=== PATIENT | female | born 1945 | race Hispanic/Latino ===

== ENCOUNTER 2017-12-12 08:37 | Emergency (ER) | payer MEDICARE ==
[2017-12-12] MEDS ORDERED: METHYLPREDNISOLONE SOD SUCC 40MG/ML 1ML ONE (09:11)
[2017-12-12] MEDS ORDERED: LEVOFLOXACIN 500 MG TABLET ONE (09:11)
[2017-12-12] MEDS ORDERED: IPRATROPIUM/ALBUTEROL SULFATE 3 ML SOLUTION IH ONE (09:11)
[2017-12-12 09:17] LABS: BASOPHILS % (AUTO) 1.2 % (0.0-5.0); HEMATOCRIT 38.3 % (36-48); MEAN CORPUSCULAR HEMOGLOBIN 31.4 pg (27.0-33.0); MEAN CORPUSCULAR HGB CONC 34.9 g/dL (32.0-36.0); MONOCYTES % (AUTO) 6.7 % (3.0-13.0); NEUTROPHILS % (AUTO) 69.1 % (40.0-77.0); PLATELET COUNT (AUTO) 168 K/uL (130-400); RED BLOOD CELL COUNT(AUTO) 4.26 MIL/uL (4.00-5.50); RED CELL DISTRIBUTION WIDTH 13.9 % (11.0-15.5); WHITE BLOOD COUNT (AUTO) 5.6 K/uL (4.8-10.8)
[2017-12-12] MEDS ORDERED: SODIUM CHLORIDE 0.9% 1000ML 1,000 ML IV ONE (09:21)
[2017-12-12 09:22] LABS: APPEARANCE,URINE Clear (CLEAR); BILIRUBIN,URINE Negative (NEGATIVE); COLOR,URINE Yellow (YELLOW); GLUCOSE, URINE (UA) Negative (NEGATIVE); KETONES,URINE Negative (NEGATIVE); LEUKOCYTE ESTERASE ,URINE Small (NEGATIVE); NITRATE,URINE Negative (NEGATIVE); OCCULT BLOOD,URINE Negative (NEGATIVE); PH,URINE 5.5 (5.0-8.0); PROTEIN,URINE Negative (NEGATIVE); UROBILINOGEN,URINE 0.2 mg/dL (0.2-1.0)
[2017-12-12 09:23] LABS: CREATININE 0.9 mg/dL (0.5-1.5)
[2017-12-12 09:35] LABS: BACTERIA,URINE Rare /HPF (None Seen); RBC,URINE 0-1 /HPF (0-1); SQUAMOUS EPITHELIAL CELL,UR Rare /LPF (0-2)
== END 2017-12-12 10:31 | disposition home or self-care (01) ==
LOC: EDH 08:37
DX: J44.1 Chronic obstructive pulmonary disease with (acute) exacerbation (principal); I10 Essential (primary) hypertension; J84.10 Pulmonary fibrosis, unspecified; R50.9 Fever, unspecified; M25.50 Pain in unspecified joint
CPT/HCPCS: 36415; 71045; 80048; 81001; 83605; 85025; 85378; 87088; 87804 ×2; 93005; 94640; 96361; 96374; 99285; J2920; J7030

== ENCOUNTER 2018-07-19 11:17 | Emergency (ER) | payer MEDICARE ==
[2018-07-19] MEDS ORDERED: IPRATROPIUM/ALBUTEROL SULFATE 3 ML SOLUTION IH ONE (11:38)
[2018-07-19 11:41] LABS: BASOPHILS % (AUTO) 0.7 % (0.0-5.0); EOSINOPHILS % (AUTO) 4.4 % (0.0-8.0); HEMATOCRIT 36.9 % (36-48); LYMPHOCYTES % (AUTO) 13.5 % (21.0-51.0); MEAN CORPUSCULAR HEMOGLOBIN 30.8 pg (27.0-33.0); MEAN CORPUSCULAR VOLUME 90.5 fL (79-99); MONOCYTES % (AUTO) 4.4 % (3.0-13.0); NUCLEATED RED BLOOD CELLS 0.1 % (0.0-0.19); PLATELET COUNT (AUTO) 187 K/uL (130-400); RED BLOOD CELL COUNT(AUTO) 4.07 MIL/uL (4.00-5.50); WHITE BLOOD COUNT (AUTO) 5.7 K/uL (4.8-10.8)
[2018-07-19 11:48] LABS: POTASSIUM 4.3 mmol/L (3.5-5.1)
[2018-07-19 11:53] LABS: ALBUMIN 3.8 g/dL (3.5-5.0); BILIRUBIN,TOTAL 0.5 mg/dL (0.2-1.0); TOTAL PROTEIN, SERUM 7.2 g/dL (6.0-8.3)
[2018-07-19 11:58] LABS: INR 1.01 (0.85-1.15); PROTHROMBIN TIME 10.6 SEC (9.6-11.6)
[2018-07-19] MEDS ORDERED: ACETAMINOPHEN 325 MG TAB ONE (12:56)
== END 2018-07-19 15:13 | disposition home or self-care (01) ==
LOC: EDH 11:17
DX: R06.00 Dyspnea, unspecified (principal); R07.2 Precordial pain; R06.02 Shortness of breath; I10 Essential (primary) hypertension
CPT/HCPCS: 36415; 71045; 80053; 82550; 83880; 84484; 85025; 85610; 85730; 93005; 94640

== ENCOUNTER → 2019-01-30 | Outpatient (CLI) | payer MEDICARE | END | disposition home or self-care (01) | LOC: SHCH 10:35 | PROVIDERS: ATTEND Internal Medicine Cardiovascular Disease | DX: I10 Essential (primary) hypertension (principal) | CPT/HCPCS: 93306 ==

== ENCOUNTER → 2019-01-31 | Outpatient (CLI) | payer MEDICARE ==
[~2019-01-31] VITALS: Ht 152.4 cm; Wt 71.2 kg
[~2019-01-31] MED LIST: REGADENOSON 0.4 MG/5 ML PF SYG IVP SCH
== END | disposition home or self-care (01) ==
LOC: SHCH 08:03
PROVIDERS: ATTEND Internal Medicine Cardiovascular Disease
DX: I25.119 Atherosclerotic heart disease of native coronary artery with unspecified angina pectoris (principal)
CPT/HCPCS: 78452; 93017; 96374; A9500 ×2; J2785

== ENCOUNTER → 2023-03-27 | Outpatient (CLI) | payer MEDICARE ==
[~2023-03-27] MED LIST changes: +REGADENOSON 0.4 MG/5 ML PF SYG IVP ONE; -REGADENOSON 0.4 MG/5 ML PF SYG IVP SCH
== END | disposition home or self-care (01) ==
LOC: SHCH 08:33
PROVIDERS: ATTEND Internal Medicine Cardiovascular Disease
DX: R94.39 Abnormal result of other cardiovascular function study (principal); I20.0 Unstable angina; R00.0 Tachycardia, unspecified; R06.00 Dyspnea, unspecified; R00.2 Palpitations; R42 Dizziness and giddiness; I10 Essential (primary) hypertension
CPT/HCPCS: 78452; 96374; 93017; J2785; A9500 ×2

== ENCOUNTER 2025-08-02 10:38 | Inpatient (IN) | payer MEDICARE, MEDICAID ==
[~2025-08-02] VITALS: Ht 152.4 cm; Wt 78.7 kg
[2025-08-02 11:10] LABS: RAPID GROUP A STREP negative (NEGATIVE)
[2025-08-02 11:13] LABS: SARS-CoV-2, RNA, NAAT NEGATIVE SARS CoV-2 (NEGATIVE)
[2025-08-02 11:15] LABS: IMMATURE GRANULOCYTE ABSOLUTE 0.03 K/uL (0-1); NUCLEATED RED BLOOD CELLS 0.0 % (0.0-0.19); PLATELET COUNT (AUTO) 222 K/uL (130-400); RED BLOOD CELL COUNT(AUTO) 4.33 MIL/uL (4.00-5.50); RED CELL DISTRIBUTION WIDTH 13.3 % (11.0-15.5); WHITE BLOOD COUNT (AUTO) 7.4 K/uL (4.8-10.8)
[2025-08-02 11:20] LABS: INFLUENZA TYPE A Negative For Type A (NEGATIVE); INFLUENZA TYPE B Negative For Type B (NEGATIVE)
--- NOTE | 2025-08-02 11:21 | ERN ---
General Chief Complaint: Abdominal Pain Stated Complaint: ABD PAIN Time Seen by MD: 10:40 Source: patient History of Present Illness Initial Comments Patient is a 80-year-old female coming in complaining of abdominal pain diarrhea and vomiting. Per patient this has been ongoing for two days. Prior to this she has had other similar episodes has been evaluated by PCP. Allergies: Coded Allergies: No Known Drug Allergies (Verified Allergy, 07/09/13) Past Medical History Past Medical History: Anxiety, Arthritis, GERD, Hypertension Past Surgical History: Hysterectomy, Cholecystectomy, Other, Surgical History Other: RT KNEE SX ROS Dictation CONSTITUTIONAL: No chills, no fever, no weakness, no diaphoresis, no malaise. HEAD/FACE: No signs of trauma. EENT: No eye pain, no blurred vision, no tearing, no double vision, no ear pain, no ear discharge, no nose pain, no nasal congestion, no throat pain, no throat swelling, no mouth pain. RESPIRATORY: No cough, no orthopnea, no SOB, no stridor, no wheezing. CARDIOVASCULAR: No chest pain, no edema, no palpitations, no syncope. GASTROINTESTINAL/ABDOMINAL: abdominal pain, no constipation, diarrhea, no nausea, vomiting. GENITOURINARY: No abnormal discharge, no dysuria, no frequent urination, no hem aturia. No complaints of pain in the genitals. MUSCULOSKELETAL: No back pain, no gout, no joint pain, no joint swelling, no mu scle pain, no muscle stiffness, no neck pain. INTEGUMENTARY: No change in color, no change in hair/nails, no dryness, no lesion, no lumps, no rash. NEUROLOGICAL/PSYCH: No anxiety, not depressed, no emotional problem, no headache, no numbness, no pre-existing deficit, no history of seizures, no tremors, no weakness. HEMATOLOGIC/LYMPHATIC: Not anemic, no history of blood clots, no apparent bleeding, no bruising, glands not swollen. All Systems Negative, Except as Noted. Physical Exam Physical Exam Dictation VITAL SIGNS: Reviewed. GENERAL APPEARANCE: Alert, oriented x3, no acute distress, obese. HEAD AND FACE: Non-traumatic. EYES: PERRL, pink conjunctivas, eyelid no trauma, anterior chamber clear. EARS: Pinnas intact and no signs of trauma or erythema. Ear canals clear and no discharge. TMs no erythema. NOSE: No discharge, no bleeding. OROPHARYNX: Mouth normal, teeth no caries, tongue pink. Pharynx clear, no erythema. Tonsils no exudates, no abscesses noted. Mucous membrane moist. NECK: Supple, non-tender, no thyromegaly, no masses, no JVD, no bruits. BREAST: Deferred. CHEST: No tenderness, no crepitus, no paradoxical movement, no retractions. LUNGS: Clear, well-ventilated, symmetric, no rales, no wheezing, no rhonchi, no stridor, good breath sounds bilaterally. HEART: Regular rate, regular rhythm, no murmur, no gallops. VASCULAR: No peripheral edema. ABDOMEN: Soft, positive bowel sounds, nondistended, no guarding, tender, no rebound, no masses no hepatomegaly, no splenomegaly, no Reynolds's sign, no hernias. RECTAL: Deferred. GENITAL: Deferred. NEUROLOGICAL: Normal speech, gross motor function intact, gross sensory function intact. MUSCULOSKELETAL: Neck nontender, full range of motion, back nontender, full range of motion. EXTREMITIES: Nontender, full range of motion. SKIN: Color pink, dry, no turgor, no rash, no lacerations, no abrasions, no contusions. LYMPHATICS: Deferred. Results Laboratory and Microbiology Lab and Micro Result Laboratory Tests Test 08/02/25 10:45 08/02/25 11:08 08/02/25 11:17 Influenza Type A Antigen Negative For Type A Influenza Type B Antigen Negative For Type B SARS-CoV-2, RNA, NAAT NEGATIVE SARS CoV-2 Group A Streptococcus Rapid negative (NEGATIVE) White Blood Count 7.4 K/uL (4.8-10.8) Red Blood Count 4.33 MIL/uL (4.00-5.50) Hemoglobin 13.0 g/dL (12.0-16.0) Hematocrit 39.8 % (36-48) Mean Corpuscular Volume 91.9 fL (79-99) Mean Corpuscular Hemoglobin 30.0 pg (27.0-33.0) Mean Corpuscular Hemoglobin Concent 32.7 g/dL (32.0-36.0) Red Cell Distribution Width 13.3 % (11.0-15.5) Platelet Count 222 K/uL (130-400) Mean Platelet Volume 9.0 fL (7.5-10.5) Immature Granulocyte % (Auto) 0.4 % (0-1) Neutrophils (%) (Auto) 80.6 % (40.0-77.0) H Lymphocytes (%) (Auto) 12.5 % (21.0-51.0) L Monocytes (%) (Auto) 3.3 % (3.0-13.0) Eosinophils (%) (Auto) 2.8 % (0.0-8.0) Basophils (%) (Auto) 0.4 % (0.0-5.0) Neutrophils # (Auto) 5.9 K/uL (1.8-7.7) Lymphocytes # (Auto) 0.9 K/uL (1.0-4.8) L Monocytes # (Auto) 0.2 K/uL (0.1-1.0) Eosinophils # (Auto) 0.21 K/uL (0.00-0.70) Basophils # (Auto) 0.03 K/uL (0.00-0.20) Absolute Immature Granulocyte (auto 0.03 K/uL (0-1) Nucleated Red Blood Cells 0.0 % (0.0-0.19) Sodium Level 141 mmol/L (136-145) Potassium Level 4.0 mmol/L (3.5-5.1) Chloride Level 100 mmol/L (101-111) L Carbon Dioxide Level 27 mmol/L (21-32) Blood Urea Nitrogen 12 mg/dL (7-18) Creatinine 1.0 mg/dL (0.5-1.0) Glomerular Filtration Rate Calc 56 mL/min (>90) Random Glucose 139 mg/dL (70-105) H Lactic Acid Level 1.8 mmol/L (0.8-2.5) Total Calcium 8.9 mg/dL (8.5-10.1) Total Creatine Kinase 86 U/L (21-232) Troponin I High Sensitivity 7 ng/L (4-50) Urine Color YELLOW (YELLOW) Urine Appearance CLOUDY (CLEAR) H Urine pH 7.0 (5.0-8.0) Urine Specific [place] 1.021 (1.001-1.031) Urine Protein 20 mg/dL (NEGATIVE) H Urine Glucose (UA) NEGATIVE mg/dL (NEGATIVE) Urine Ketones NEGATIVE mg/dL (NEGATIVE) Urine Occult Blood +- (TRACE) (NEGATIVE) H Urine Nitrate 2+ (NEGATIVE) H Urine Bilirubin NEGATIVE mg/dL (NEGATIVE) Urine Urobilinogen 2.0 mg/dL (0.2-1.0) H Urine Leukocyte Esterase 500 Jason/uL (NEGATIVE) H Urine RBC 6-10 /HPF (0-1) H Urine WBC TNTC /HPF (0-1) H Urine Squamous Epithelial Cells RARE /HPF (0-2) Urine Bacteria MANY /HPF (None Seen) Labs Reviewed?: Yes EKG/XRAY/US/CT/MRI EKG Comment 08/02/2025 time 10:49 a.m. Ventricular rate 124 Sinus tachycardia RI [address] wave elevation or depression MDM MDM: Differential diagnosis:uti, sepsis Rationale: Tests considered and ordered secondary to shared decision making include: Previous outside records reviewed: Old ER visits. Risk of complication and/or morbidity or mortality of patient management: None Medications-Per medication reconciliation Need for hospitalization: Patient does meet criteria for hospitalization. Need for emergency major/minor surgery: No There are no social concerns with this patient. Prescription drug management Prescriptions will include symptomatic care Patient's prior external medical records from other ER visits were reviewed by me as indicated. Prior testing and results from previous visits were reviewed. Prior tests were taken into account with medical decision making and resource utilization, independent historian/historians were used to obtain complete medical history. I independently interpreted the test that were performed, results were reviewed by me and considered findings on radiology if ordered. Medical management and examination interpretation discussions were had by me with other qualified healthcare professionals as indicated for the patient's care. Patient will be care of hospitalist group ED Course Orders Procedure Category Date Status Time 12 Lead Ekg Tracing- EKG 08/02/25 Logged Technical 10:42 Cbc With Differential LAB 08/02/25 Complete 10:42 Blood Cult KEV 08/02/25 In Process 10:42 Urinalysis Profile LAB 08/02/25 Complete 10:42 Culture Urine KEV 08/02/25 In Process 10:42 Chest 1vw RAD 08/02/25 Resulted 10:42 Acetaminophen 500mg PHA 08/02/25 Complete Tab (Tylenol 500mg T 11:00 Creatine Kinase, Total LAB 08/02/25 Complete 10:42 Troponin I High LAB 08/02/25 Complete Sensitivity 10:42 Lactic Acid LAB 08/02/25 Complete 10:42 Basic Metabolic Panel LAB 08/02/25 Complete 10:42 Covid Rna Naat LAB 08/02/25 Complete 10:42 Influenza Type A & B, LAB 08/02/25 Complete Rapid 10:42 Rapid (Group A Strep) LAB 08/02/25 Complete 10:42 0.9%Nacl 1000ml (Ns PHA 08/02/25 Complete 1000ml) 11:48 Ceftriaxone 1g Vial PHA 08/02/25 Verified (Rocephine 1g Inj) 12:00 Current Medications Medications (Trade) Dose Ordered Sig/Charles Route PRN Reason Start Time Stop Time Status Last Admin Dose Admin Acetaminophen (TYLenol 500MG TAB) 1,000 mg ONCE ONCE PO 08/02/25 11:00 08/02/25 11:01 DC 08/02/25 11:13 Sodium Chloride 1,000 ml @ 0 mls/hr Q0M STAT IV 08/02/25 11:48 08/02/25 11:59 DC Vital Signs Date Time Temp Pulse Resp B/P (MAP) Pulse Ox O2 Delivery O2 Flow Rate FiO2 08/02/25 11:15 99.0 124 18 134/65 95 Room Air* 0 21 08/02/25 11:13 99.0 08/02/25 10:40 99.0 134 18 173/77 95 Room Air 0 Critical Care Note Comments Critical Care Procedure Note Authorized and Performed by: Total critical care time: Approximately 36 minutes Due to a high probability of clinically significant, life threatening deterioration, the patient required my highest level of preparedness to intervene emergently and I personally spent this critical care time directly and personally managing the patient. This critical care time included obtaining a history; examining the patient; pulse oximetry; ordering and review of studies; arranging urgent treatment with development of a management plan; evaluation of patient's response to treatment; frequent reassessment; and, discussions with other providers. This critical care time was performed to assess and manage the high probability of imminent, life-threatening deterioration that could result in multi-organ failure. It was exclusive of separately billable procedures and treating other patients and teaching time. Please see MDM section and the rest of the note for further information on patient assessment and treatment. DX & DISP Disposition: Inpatient Decision to Admit Time: 12:02 Departure Impression: Primary Impression: UTI (urinary tract infection) Additional Impression: Sepsis Condition: Stable Referrals: DICKSON CERVANTES (PCP) PRECIOUS COPELAND MD Aug 02, 2025 11:21
[2025-08-02 11:28] LABS: APPEARANCE,URINE CLOUDY (CLEAR); GLUCOSE, URINE (UA) NEGATIVE (NEGATIVE); LEUKOCYTE ESTERASE ,URINE 500 Leu/uL (NEGATIVE); NITRATE,URINE 2+ (NEGATIVE); OCCULT BLOOD,URINE +- (TRACE) (NEGATIVE)
[2025-08-02 11:31] LABS: ADD UA MICROSCOPIC YES
[2025-08-02 11:36] LABS: SQUAMOUS EPITHELIAL CELL,UR RARE /HPF (0-2)
[2025-08-02 11:36] LABS: CREATININE 1.0 mg/dL (0.5-1.0); GLOMERULAR FILTR. RATE CALC 56.0 mL/min (>90); GLUCOSE,RANDOM 139.0 mg/dL (70-105); SODIUM SERUM 141.0 mmol/L (136-145); UREA NITROGEN, BLOOD 12.0 mg/dL (7-18)
[2025-08-02 11:41] LABS: CREATINE KINASE, TOTAL 86.0 U/L (21-232)
--- NOTE | 2025-08-02 11:44 | HMCIMG ---
EXAM: CR Chest, 1 View. CLINICAL HISTORY: cough COMPARISON: 07/19/2018. FINDINGS: LUNGS: The lungs show no infiltrate or other acute finding. PLEURAL SPACES: No pleural effusion or pneumothorax. MEDIASTINUM: Cardiac size and mediastinal contours within normal limits. BONES: No aggressive appearing osseous lesion seen. IMPRESSION: No acute cardiopulmonary pathology is evident. /[place]
[2025-08-02] MEDS ORDERED: 0.9%NACL 1000ML 1,000 ML IV STA (11:48)
[2025-08-02] MEDS: 0.9%NACL 1000ML 1,000 ML IV ONE (12:12)
[2025-08-02 12:13] VITALS: TEMP 99
--- NOTE | 2025-08-02 12:22 | HP ---
[facility] HISTORY [facility] PHYS[facility] Date of Service: Aug 02, 2025 Time of Service: 12:22 HISTORY OF PRESENT ILLNESS: Female with past medical history of hypertension, hyperlipidemia, hypothyroidism, fibrosis who presented to the hospital secondary to abdominal pain. Patient states for the past one week she has noted that she has been having abdominal pain with associated nausea, vomiting. She has also noted diarrhea at home which is loose and watery. She denies any hematochezia, hematemesis, melena. She denied any sick contacts at home or recent travel. She also has been having productive cough. She has been having fever, chills at home. Denied any dysuria, changes in her urinary frequency. She did not take her medications today in the morning due to feeling nauseated. She follows with Dr. Shepard as outpatient for pulmonary fibrosis. Denied any falls, syncopal episode. Denied any hematuria. Furthermore she has been having pain in the epigastric area. Pain does not radiate. , sodium Labs in the ER were notable for white count of 7.4, hemoglobin was 13.0, platelet count was 222 K , sodium was 141, potassium was 4.0, chloride was 100, creatinine was 1.0. The patient's UA showed findings concerning for UTI. In the ED patient received NS. On presentation to the ER patient's temperature was 99.0, heart rate was 134, blood pressure was 173/77 REVIEW OF SYSTEMS CONSTITUTIONAL: Denies fevers, chills, or night sweats. No unintentional weight loss reported. NEUROLOGICAL: Denies headache, amaurosis fugax, motor weakness, sensory deficit, vertigo/spinning sensation, gait abnormalities, or tremors. ENT: No hearing loss, otalgia, otorrhea, rhinitis, rhinorrhea, hoarseness, or sore throat. CARDIOVASCULAR: Denies any exertional angina, dyspnea on exertion, orthopnea, paroxysmal nocturnal dyspnea, palpitations, life-threatening arrhythmias, claudication. PULMONARY: Denies any shortness of breath, hemoptysis, pleuritic chest pain. Positive For cough, sputum production GASTROINTESTINAL: Positive for abdominal pain, nausea, vomiting, diarrhea. Denied any melena, hematochezia, hematemesis GENITOURINARY: Denies frequency, urgency, nocturia, hematuria or incontinence (Storage/Irritative symptoms.) Low urinary stream, straining to void, urinary intermittency or hesitancy, splitting of the voiding stream, terminal dribbling. ENDOCRINOLOGIC: Denies polyuria, polydipsia, polyphagia or heat/cold intolerances. HEMATOLOGIC: Denies thrombophilia/previous clots, or coagulopathy/bleeding disorders. ONCOLOGIC: Denies personal history of malignancy. DERMATOLOGIC: Denies rashes or pruritus. PSYCHIATRIC: Denies any suicidal or homicidal ideation. Denies hallucinations. PAST MEDICAL HISTORY: Hyperlipidemia, hypertension, hypothyroidism, pulmonary fibrosis PAST SURGICAL HISTORY: Hysterectomy, cholecystectomy, history of PAST SOCIAL HISTORY: Denied any smoking, alcohol, drug use FAMILY HISTORY: Denied any pertinent family history Coded Allergies: No Known Drug Allergies (Verified Allergy, 07/09/13) PHYSICAL EXAM GENERAL APPEARANCE: The patient is awake, alert, and oriented, in no acute cardiopulmonary distress. NEUROLOGICAL: Cranial nerves II-XII grossly intact. Motor is 5/5 in bilateral upper and lower extremities proximal to distal. No sensory deficits. HEENT: Face is symmetric. Pupils are equal and reactive. Extraocular movements are intact. NECK: Supple. No JVD. No thyromegaly. No submental, submandibular, pre- /postauricular, occipital or supraclavicular lymphadenopathy. CHEST: Normal chest expansion. No Telemetry. LUNGS: Patient has crackles present bilaterally CARDIOVASCULAR: Regular. S1 and S2 normal. No appreciable rubs, murmurs or gallops. ABDOMEN: Soft, tenderness to palpation in the epigastric area. No guarding, no rebound present : Deferred. No [place]. EXTREMITIES: Non-edematous and not cyanotic. No clubbing. Good capillary refill. SKIN: No skin breakdown. Vital Sign (Last 24 Hours) 08/02/25 11:15 Temp 99.0 Pulse 124 Resp 18 B/P (MAP) 134/65 Pulse Ox 95 O2 Delivery Room Air* O2 Flow Rate 0 FiO2 21 LABS: Laboratory: Test 08/02/25 11:17 08/02/25 11:08 08/02/25 10:45 Range/Units Urine Color YELLOW YELLOW Urine Appearance CLOUDY H CLEAR Urine pH 7.0 5.0-8.0 Urine Specific [place] 1.021 1.001-1.031 Urine Protein 20 H NEGATIVE mg/dL Urine Glucose (UA) NEGATIVE NEGATIVE mg/dL Urine Ketones NEGATIVE NEGATIVE mg/dL Urine Occult Blood +- (TRACE) H NEGATIVE Urine Nitrate 2+ H NEGATIVE Urine Bilirubin NEGATIVE NEGATIVE mg/dL Urine Urobilinogen 2.0 H 0.2-1.0 mg/dL Urine Leukocyte Esterase 500 H NEGATIVE Jason/uL Urine RBC 6-10 H 0-1 /HPF Urine WBC TNTC H 0-1 /HPF Urine Squamous Epithelial Cells RARE 0-2 /HPF Urine Bacteria MANY None Seen /HPF White Blood Count 7.4 4.8-10.8 K/uL Red Blood Count 4.33 4.00-5.50 MIL/uL Hemoglobin 13.0 12.0-16.0 g/dL Hematocrit 39.8 36-48 % Mean Corpuscular Volume 91.9 79-99 fL Mean Corpuscular Hemoglobin 30.0 27.0-33.0 pg Mean Corpuscular Hemoglobin Concent 32.7 32.0-36.0 g/dL Red Cell Distribution Width 13.3 11.0-15.5 % Platelet Count 222 130-400 K/uL Mean Platelet Volume 9.0 7.5-10.5 fL Immature Granulocyte % (Auto) 0.4 0-1 % Neutrophils (%) (Auto) 80.6 H 40.0-77.0 % Lymphocytes (%) (Auto) 12.5 L 21.0-51.0 % Monocytes (%) (Auto) 3.3 3.0-13.0 % Eosinophils (%) (Auto) 2.8 0.0-8.0 % Basophils (%) (Auto) 0.4 0.0-5.0 % Neutrophils # (Auto) 5.9 1.8-7.7 K/uL Lymphocytes # (Auto) 0.9 L 1.0-4.8 K/uL Monocytes # (Auto) 0.2 0.1-1.0 K/uL Eosinophils # (Auto) 0.21 0.00-0.70 K/uL Basophils # (Auto) 0.03 0.00-0.20 K/uL Absolute Immature Granulocyte (auto 0.03 0-1 K/uL Nucleated Red Blood Cells 0.0 0.0-0.19 % Sodium Level 141 136-145 mmol/L Potassium Level 4.0 3.5-5.1 mmol/L Chloride Level 100 L 101-111 mmol/L Carbon Dioxide Level 27 21-32 mmol/L Blood Urea Nitrogen 12 7-18 mg/dL Creatinine 1.0 0.5-1.0 mg/dL Glomerular Filtration Rate Calc 56 >90 mL/min Random Glucose 139 H 70-105 mg/dL Lactic Acid Level 1.8 0.8-2.5 mmol/L Total Calcium 8.9 8.5-10.1 mg/dL Total Creatine Kinase 86 21-232 U/L Troponin I High Sensitivity 7 4-50 ng/L Influenza Type A Antigen Negative For Type A NEGATIVE Influenza Type B Antigen Negative For Type B NEGATIVE SARS-CoV-2, RNA, NAAT NEGATIVE SARS CoV-2 NEGATIVE Group A Streptococcus Rapid negative NEGATIVE Current Medications Medications (Trade) Dose Ordered Sig/Charles Route PRN Reason Start Time Stop Time Status Last Admin Dose Admin Sodium Chloride 1,000 ml @ 0 mls/hr Q0M STAT IV 08/02/25 11:48 08/02/25 11:59 DC DIAGNOSTICS / RADIOLOGY: chest x-ray shows fibrotic lung changes ASSESSMENT: UTI POA Epigastric abdominal pain differential secondary to pancreatitis versus cholelithiasis versus GERD Suspected gastroenteritis Dehydration Sinus tachycardia Pulmonary fibrosis Hypertension Hyperlipidemia Hypothyroidism PLAN: - patient to be admitted to medical-surgical unit with telemetry -in reference to UTI. The patient will be started on Zosyn. Patient to be started on NS for gentle hydration. Follow up on urine culture for antibiotic deescalation -in reference to abdominal pain. Check lipase, LFT. Obtain a CT abdomen pelvis for further evaluation. -obtain patient's home medications which will be reconciled started once available -obtain stool PCR panel -check TSH, procalcitonin, CRP, hemoglobin A1c -further orders per hospitalization course. Advanced Care Planning Which of the following were discussed: Hospice care: Yes __ No _x_ Therapeutic options: Yes __ No __ Advance directives: Yes __ No __ Other discussions: Discussed with who?: patient (Patient, family or surrogates) Voluntary nature of this service was explained to the patient? Yes _x_ No __ Amount of time spent: 25 minutes JOSY Romo MD, MD Aug 02, 2025 12:22
[2025-08-02] MEDS ORDERED: METO-409 PO (12:55)
[2025-08-02] MEDS ORDERED: MIRT-72 PO (12:55)
[2025-08-02] MEDS ORDERED: LOSA25TA41 PO (12:55)
[2025-08-02] MEDS ORDERED: FOLI0.8T22 PO (12:55)
[2025-08-02] MEDS ORDERED: ATOR10 PO (12:55)
[2025-08-02] MEDS ORDERED: MONT-39 PO (12:55)
[2025-08-02] MEDS ORDERED: LEVO50CA5 PO (12:55)
[2025-08-02] MEDS ORDERED: FAMO40TA7 PO (12:55)
[2025-08-02] MEDS ORDERED: ESCI-8 PO (12:55)
--- NOTE | 2025-08-02 12:56 | NUR ---
MEDICATIONS RECONCILED
[2025-08-02 13:23] LABS: ASPARTATE AMINOTRANSFERASE 27.0 U/L (10-37); TOTAL PROTEIN, SERUM 7.6 g/dL (6.0-8.3)
[2025-08-02] MEDS ORDERED: 0.9%NACL 50ML IV SCH (14:00)
[2025-08-02] MEDS: 0.9%NACL 1000ML 1,000 ML IV SCH (14:02)
[2025-08-02] MEDS: ZOSYN 3.375GM +NS 50ML IVPB SCH (14:04)
--- NOTE | 2025-08-02 14:06 | EKG ---
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
--- NOTE | 2025-08-02 14:26 | HMCIMG ---
EXAM: CT Abdomen and Pelvis Without IV contrast CLINICAL HISTORY: EPIGASTRIC PAIN TECHNIQUE: Axial computed tomography images of the abdomen and pelvis without intravenous contrast. CONTRAST: No IV contrast. COMPARISON: None provided. FINDINGS: LUNG BASES: Subpleural reticular opacities in both lungs, suggestive of interstitial lung disease. No pleural effusions are seen. LIVER: Unremarkable. GALLBLADDER AND BILE DUCTS: Post-cholecystectomy status with surgical clips in situ. No biliary ductal dilatation is evident. PANCREAS: Mildly atrophic. SPLEEN: Unremarkable. ADRENAL GLANDS: Unremarkable. KIDNEYS, URETERS, AND BLADDER: The kidneys appear within normal limits. There is no hydronephrosis or hydroureter. No urinary calculi are seen. STOMACH AND BOWEL: Small hiatus hernia. Unremarkable appearance of the stomach and bowel. No evidence of bowel obstruction. No evidence suggesting enteritis or colitis. APPENDIX: No evidence of acute appendicitis on CT examination. PERITONEUM: No free fluid. No free air. LYMPH NODES: No lymphadenopathy is evident. REPRODUCTIVE: Post-hysterectomy status. No adnexal mass. VASCULATURE: No evidence of abdominal aortic aneurysm. Atherocalcific changes in the abdominal aorta and its major branches. BONES: No aggressive appearing osseous lesion. No acute osseous pathology evident. Multilevel degenerative changes in the visualized spine. IMPRESSION: 1. No acute intraabdominal or pelvic pathology. 2. Subpleural reticular opacities in both lungs, suggestive of interstitial lung disease. /[place]
--- NOTE | 2025-08-02 14:27 | HMCIMG ---
EXAM: CT Chest Without IV contrast. CLINICAL HISTORY: PULMONARY FIBROSIS TECHNIQUE: Axial computed tomography images of the chest without intravenous contrast. COMPARISON: Dated 08/02/25. FINDINGS: LUNGS: There is peripheral and basal predominant reticular-interstitial thickening with associated honeycombing and traction bronchiectasis. No pulmonary mass is present. PLEURAL SPACES: Irregular pleural thickening in the bilateral lower lobes and a tiny subpleural calcified nodule in posterolateral basal segment of the right lower lobe, no pneumothorax evident. No pleural effusions. HEART: No cardiomegaly. No significant pericardial effusion. LYMPH NODES: No lymphadenopathy is evident. UPPER ABDOMEN: The gallbladder is not visualized, consistent with prior cholecystectomy. Surgical clips are in the gallbladder fossa. BONES: Degenerative changes of the spine in the form of anterior marginal osteophytes and a vacuum phenomenon. IMPRESSION: 1. Peripheral and basal predominant reticular-interstitial thickening with honeycombing and traction bronchiectasis, consistent with pulmonary fibrosis. 2. Irregular pleural thickening in bilateral lower lobes. /[place]
[2025-08-02 15:20] VITALS: O2SAT 91
[2025-08-02 15:31] VITALS: BP 139/62; PULSE 80; RESP 19; TEMP 97.8
[2025-08-02] MEDS: SODIUM CHLORIDE 3% FOR INHALATION 4 ML/AMP VIAL.NEB IH ONE ×3 (15:38→23:20)
--- NOTE | 2025-08-02 15:47 | CONS ---
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 Patient presented to the ED today for abdominal pain with nausea and vomiting. She was admitted by the [facility] team to the medical floor for acute cystitis on Zosyn. CT of the abdomen showed no acute intra-abdominal or pelvic pathology. Subpleural reticular opacities in both lungs suggestive of interstitial lung disease. CT of the chest shows peripheral and basal predomin ant reticular interstitial thickening with honeycombing and traction bronchiectasis consistent with pulmonary fibrosis. Irregular pleural thickening and bilateral lower lobes. Labs remarkable for neutrophil % of 80.6, chloride of 100 random glucose 139 m g/dL procalcitonin of 0.57 lipase of 189, CRP of 13.10 TSH of 15.31 . On assessment patient is awake alert and oriented x3. She reports she is a patient of Dr. Robin Shepard at his pulmonology clinic. She reports regular follow ups and as needed for her pulmonary fibrosis. She denies any chest pain palpitations or shortness for breath at this time. Patient appears to be in no apparent respiratory distress. Respiratory even and unlabored. Currently saturating 93% on room air. We will order ABG for CO2 assessment. PAST MEDICAL HX: see above PAST SURGICAL HX: noncontributory SOCIAL HISTORY: No tobacco, ETOH, or illicit drug use Coded Allergies: No Known Drug Allergies (Verified Allergy, 07/09/13) REVIEW OF SYSTEMS: General: No malaise or fever. Neurological: No fainting episodes or seizures. HEENT: No nasal congestion or nasal secretion. Respiratory: No cough, shortness of breath, or wheezing Cardiac: No chest pain or palpitations. Gastrointestinal: +Nausea vomiting and diarrhea Genitourinary: No dysuria hematuria. Skin: No rashes or lesions. Hematological: No bruises or bleeding. Musculoskeletal: No joint pains or arthralgias. Psychiatric: No depression or panic attacks. PHYSICAL EXAM: GENERAL: alert, weak, awake oriented x 3 HEENT: EOMI, Sclera non icteric, moist mucosa NECK: Supple, no JVD, trachea midline LUNGS: Fine crackles to left lower lobes, no wheezes. HEART: Regular rate and rhythm. Normal S1 and S2, without murmurs ABD: Abdomen soft, nontender. Bowel sounds present EXT: No clubbing cyanosis or edema NEURO: Alert and oriented to person, follows commands Vital Signs (last 8hr) Date Time Temp Pulse Resp B/P (MAP) Pulse Ox O2 Delivery O2 Flow Rate FiO2 08/02/25 15:31 97.9 80 19 139/62 91 Room Air 08/02/25 14:51 99.1 85 22 131/59 93 Room Air* 0 21 08/02/25 12:56 99.0 102 26 147/60 95 Room Air* 0 21 08/02/25 11:15 99.0 124 18 134/65 95 Room Air* 0 21 08/02/25 11:13 99.0 08/02/25 10:40 99.0 134 18 173/77 95 Room Air 0 LABS: Hematology Labs: Test 08/02/25 11:08 Range/Units White Blood Count 7.4 4.8-10.8 K/uL Red Blood Count 4.33 4.00-5.50 MIL/uL Hemoglobin 13.0 12.0-16.0 g/dL Hematocrit 39.8 36-48 % Mean Corpuscular Volume 91.9 79-99 fL Mean Corpuscular Hemoglobin 30.0 27.0-33.0 pg Mean Corpuscular Hemoglobin Concent 32.7 32.0-36.0 g/dL Red Cell Distribution Width 13.3 11.0-15.5 % Platelet Count 222 130-400 K/uL Mean Platelet Volume 9.0 7.5-10.5 fL Immature Granulocyte % (Auto) 0.4 0-1 % Neutrophils (%) (Auto) 80.6 H 40.0-77.0 % Lymphocytes (%) (Auto) 12.5 L 21.0-51.0 % Monocytes (%) (Auto) 3.3 3.0-13.0 % Eosinophils (%) (Auto) 2.8 0.0-8.0 % Basophils (%) (Auto) 0.4 0.0-5.0 % Neutrophils # (Auto) 5.9 1.8-7.7 K/uL Lymphocytes # (Auto) 0.9 L 1.0-4.8 K/uL Monocytes # (Auto) 0.2 0.1-1.0 K/uL Eosinophils # (Auto) 0.21 0.00-0.70 K/uL Basophils # (Auto) 0.03 0.00-0.20 K/uL Absolute Immature Granulocyte (auto 0.03 0-1 K/uL Nucleated Red Blood Cells 0.0 0.0-0.19 % Chemistry Labs: Test 08/02/25 11:08 Range/Units Sodium Level 141 136-145 mmol/L Potassium Level 4.0 3.5-5.1 mmol/L Chloride Level 100 L 101-111 mmol/L Carbon Dioxide Level 27 21-32 mmol/L Blood Urea Nitrogen 12 7-18 mg/dL Creatinine 1.0 0.5-1.0 mg/dL Glomerular Filtration Rate Calc 56 >90 mL/min Random Glucose 139 H 70-105 mg/dL Hemoglobin A1c 5.5 4.0-6.0 % Estimated Average Glucose (eAG) 111 70-126 mg/dL Lactic Acid Level 1.8 0.8-2.5 mmol/L Total Calcium 8.9 8.5-10.1 mg/dL Total Bilirubin 0.6 0.2-1.0 mg/dL Direct Bilirubin 0.3 0.0-0.3 mg/dL Aspartate Amino Transf (AST/SGOT) 27 10-37 U/L Alanine Aminotransferase (ALT/SGPT) 5 L 12-78 U/L Alkaline Phosphatase 93 50-136 U/L Total Creatine Kinase 86 21-232 U/L Troponin I High Sensitivity 7 4-50 ng/L C-Reactive Protein, Quantitative 13.10 H 0.5-3.0 mg/L Total Protein 7.6 6.0-8.3 g/dL Albumin 3.7 3.5-5.0 g/dL Lipase 189 H 16-77 U/L Procalcitonin 0.57 H 0.05-0.5 ng/mL Thyroid Stimulating Hormone (TSH) 15.31 H 0.36-3.74 uIU/mL DIAGNOSTICS / RADIOLOGY RESULTS: [[facility] [address] [place], [place] [id number] IMAGING REPORT Signed PATIENT: IYN NAZARIO MR#: [id number] : 1945 SEX: F AGE: 80 LOCATION: [facility] ORDER STATUS: ADM IN REPORT#: [id number] SERVICE 1216 REASON: PULMONARY FIBROSIS ORDERING PHYSICIAN: JOSY ORTIZ MD PROCEDURE: CHEST WO - CT CHEST W/O CONTRAST EXAM: CT Chest Without IV contrast. CLINICAL HISTORY: PULMONARY FIBROSIS TECHNIQUE: Axial computed tomography images of the chest without intravenous contrast. COMPARISON: Dated 08/02/25. FINDINGS: LUNGS: There is peripheral and basal predominant reticular-interstitial thickening with associated honeycombing and traction bronchiectasis. No pulmonary mass is present. PLEURAL SPACES: Irregular pleural thickening in the bilateral lower lobes and a tiny subpleural calcified nodule in posterolateral basal segment of the right lower lobe, no pneumothorax evident. No pleural effusions. HEART: No cardiomegaly. No significant pericardial effusion. LYMPH NODES: No lymphadenopathy is evident. UPPER ABDOMEN: The gallbladder is not visualized, consistent with prior cholecystectomy. Surgical clips are in the gallbladder fossa. BONES: Degenerative changes of the spine in the form of anterior marginal osteophytes and a vacuum phenomenon. IMPRESSION: 1. Peripheral and basal predominant reticular-interstitial thickening with honeycombing and traction bronchiectasis, consistent with pulmonary fibrosis. 2. Irregular pleural thickening in bilateral lower lobes. /[place] DICTATED BY: MANJULA PETERSON MD DATE: 08/02/251526 ELECTRONICALLY SIGNED BY: MANJULA PETERSON MD DATE: 08/02/251526 ] [facility] [address] [place] [id number] IMAGING REPORT Signed PATIENT: YIN NAZARIO MR#: [id number] : 1945 SEX: F AGE: 80 LOCATION: [facility] ORDER 1222 STATUS: [facility] RE[facility]#: [id number] SERVICE 1216 REASON: EPIGASTRIC PAIN ORDERING PHYSICIAN: JOSY ORTIZ MD PROCEDURE: ABD PEL WO - CT ABDOMEN/PELVIS W/O CONTRAST EXAM: CT Abdomen and Pelvis Without IV contrast CLINICAL HISTORY: EPIGASTRIC PAIN TECHNIQUE: Axial computed tomography images of the abdomen and pelvis without intravenous contrast. CONTRAST: No IV contrast. COMPARISON: None provided. FINDINGS: LUNG BASES: Subpleural reticular opacities in both lungs, suggestive of interstitial lung disease. No pleural effusions are seen. LIVER: Unremarkable. GALLBLADDER AND BILE DUCTS: Post-cholecystectomy status with surgical clips in situ. No biliary ductal dilatation is evident. PANCREAS: Mildly atrophic. SPLEEN: Unremarkable. ADRENAL GLANDS: Unremarkable. KIDNEYS, URETERS, AND BLADDER: The kidneys appear within normal limits. There is no hydronephrosis or hydroureter. No urinary calculi are seen. STOMACH AND BOWEL: Small hiatus hernia. Unremarkable appearance of the stomach and bowel. No evidence of bowel obstruction. No evidence suggesting enteritis or colitis. APPENDIX: No evidence of acute appendicitis on CT examination. PERITONEUM: No free fluid. No free air. LYMPH NODES: No lymphadenopathy is evident. REPRODUCTIVE: Post-hysterectomy status. No adnexal mass. VASCULATURE: No evidence of abdominal aortic aneurysm. Atherocalcific changes in the abdominal aorta and its major branches. BONES: No aggressive appearing osseous lesion. No acute osseous pathology evident. Multilevel degenerative changes in the visualized spine. IMPRESSION: 1. No acute intraabdominal or pelvic pathology. 2. Subpleural reticular opacities in both lungs, suggestive of interstitial lung disease. /[place] DICTATED BY: MANJULA PETERSON MD DATE: 08/02/251525 ELECTRONICALLY SIGNED BY: MANJULA PETERSON MD DATE: 08/02/2515[address] [address] IMAGING REPORT Signed PATIENT: YIN NAZARIO MR#: [id number] : 1945 SEX: F AGE: 80 LOCATION: [facility] ORDER 44 STATUS: REG ER REPORT#: [id number] SERVICE 41 REASON: cough ORDERING PHYSICIAN: PRECIOUS COPELAND MD PROCEDURE: CXR1VW - CHEST 1VW EXAM: CR Chest, 1 View. CLINICAL HISTORY: cough COMPARISON: 07/19/2018. FINDINGS: LUNGS: The lungs show no infiltrate or other acute finding. PLEURAL SPACES: No pleural effusion or pneumothorax. MEDIASTINUM: Cardiac size and mediastinal contours within normal limits. BONES: No aggressive appearing osseous lesion seen. IMPRESSION: No acute cardiopulmonary pathology is evident. /[place] DICTATED BY: DOMENICO BANDA MD DATE: 08/02/251243 ELECTRONICALLY SIGNED BY: DOMENICO BANDA MD DATE: 08/02/251243 PLAN Maintain O2 sats above 92% supplement with a O2 if needed. Monitoring O2 sats with the vital signs 6 minute walk on discharge Pulmonary hygiene with IS, early ambulation CT chest performed with results of peripheral and basal predominant reticular interstitial thickening with honeycombing and traction bronchiectasis consistent with pulmonary fibrosis. Irregular pleural thickening and bilateral lower lobes. Patient on Zosyn for UTI add doxy p.o. to cover for cap the setting of sepsis ABG if hypoxemic or hypercapnic add steroids maintain euvolemia PT to eval and treat Continue home Singulair Continue GI and DVT prophylaxis Full Resuscitation Disposition per primary team. Other: Total patient care time exceeds 35 minutes excluding all procedures. ATTESTATION BY PHYSICIAN The patient has been seen and evaluated, the case has been discussed with the [employer] HE[employer] ASSIST[employer], I agree with the clinical findings and plan of care. Robin Shepard MD, [facility] Aug 02, 2025 15:47
[2025-08-02 16:31] LABS: ABG BASE EXCESS -1.9 mmol/L (-2.0-3.0); ABG HCO3 21.5 mmol/L (21.0-28.0); ABG OXYGEN SATURATION 93.7 % (94.0-98.0); ABG PCO2 33 mmHg (32-45); ABG PH 7.438 (7.350-7.450); CARBON MONOXIDE 0.5 % (0.5-1.5); DEVICE COMMENT RR; PO2, ARTERIAL BG 71.7 mmHg (83.0-108.0); TEMPERATURE, CELSIUS BG 37.0 CELSIUS (35.5-37.0); VENT MODE, BG RA (ROOM AIR)
[2025-08-02 16:39] VITALS: PULSE 68; PULSE 85; RESP 20; O2SAT 95
[2025-08-02 19:00] VITALS: RESP 20; O2SAT 96
[2025-08-02 20:00] VITALS: BP 142/69; PULSE 90; RESP 20; TEMP 98.5; O2SAT 90
[2025-08-02] MEDS: FAMOTIDINE 20MG VIAL IV SCH (20:18)
[2025-08-02] MEDS: DOXYCYCLINE HYCLATE 100 MG TABLET PO SCH (20:18)
[2025-08-03] VITALS (8 sets, daily range): BP systolic 117–139; BP diastolic 54–77; PULSE 78–90; RESP 15–20; TEMP 97.5–99.1; O2SAT 92–93
[2025-08-03 06:24] LABS: IMMATURE GRANULOCYTE ABSOLUTE 0.02 K/uL (0-1); NUCLEATED RED BLOOD CELLS 0.0 % (0.0-0.19); PLATELET COUNT (AUTO) 191 K/uL (130-400); RED BLOOD CELL COUNT(AUTO) 3.47 MIL/uL (4.00-5.50); RED CELL DISTRIBUTION WIDTH 13.6 % (11.0-15.5); WHITE BLOOD COUNT (AUTO) 5.2 K/uL (4.8-10.8)
[2025-08-03 06:32] LABS: CREATININE 0.9 mg/dL (0.5-1.0); GLOMERULAR FILTR. RATE CALC 64.0 mL/min (>90); GLUCOSE,RANDOM 95.0 mg/dL (70-105); SODIUM SERUM 141.0 mmol/L (136-145); UREA NITROGEN, BLOOD 8.0 mg/dL (7-18)
[2025-08-03] MEDS: ENOXAPARIN SODIUM 40 MG/0.4 ML SYRINGE SQ SCH (07:58)
[2025-08-03] MEDS: Vitamin B Complex/Vit C/Folic Acid PO SCH (07:58)
[2025-08-03] MEDS ORDERED: NON-FORMULARY MEDICATION 1 EACH (Escitalopram Oxalate 1 TAB) PO SCH (09:00)
--- NOTE | 2025-08-03 11:09 | NUR ---
DCP:HOME Pt typically lives alone however son stays with her whenever he is in town. Pt does have a cane that she uses to ambulate. Pt states that she has 6hrs a day in provider services and they assist with all ADLs, home management, and meals. PCP is Dr. Gagan Maldonado and uses [facility] for any RX needs. At [place] pt will want to go home and family can assist with transportation. Addendum: 08/03/25 at 1111 by JULIO TUCKER SS Amended: Links added.
--- NOTE | 2025-08-03 13:24 | PN ---
[facility] PROGRESS NOTE Date Patient Seen: Aug 03, 2025 Time of Visit: 1115 Supervising Physician: Dr. 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 Patient remains on room air is tolerating well. Patient denies any chest pain or shortness of breadth. Denies any nausea vomiting or any reoccurrence abdominal pain. Patient to continue with current IV antibiotics. As per primary nurse no acute events to be reported. Patient has remained hemodynamically stable. Dispo per primary team REVIEW OF SYSTEMS: General: No malaise or fever. Neurological: No fainting episodes or seizures. HEENT: No nasal congestion or nasal secretion. Respiratory: No cough, shortness of breath, or wheezing Cardiac: No chest pain or palpitations. Gastrointestinal: +Nausea vomiting and diarrhea Genitourinary: No dysuria hematuria. Skin: No rashes or lesions. Hematological: No bruises or bleeding. Musculoskeletal: No joint pains or arthralgias. Psychiatric: No depression or panic attacks. PHYSICAL EXAM: GENERAL: alert, weak, awake oriented x 3 HEENT: EOMI, Sclera non icteric, moist mucosa NECK: Supple, no JVD, trachea midline LUNGS: Fine crackles to left lower lobes, no wheezes. HEART: Regular rate and rhythm. Normal S1 and S2, without murmurs ABD: Abdomen soft, nontender. Bowel sounds present EXT: No clubbing cyanosis or edema NEURO: Alert and oriented to person, follows commands Vital Signs (last 8hr) Date Time Temp Pulse Resp B/P (MAP) Pulse Ox O2 Delivery O2 Flow Rate FiO2 08/03/25 11:58 97.5 78 15 127/54 91 Room Air 08/03/25 08:00 99.1 90 16 117/57 92 Room Air 08/03/25 07:07 88 20 N/A Room Air 21 LABS: Hematology Labs: Test 08/03/25 05:07 Range/Units White Blood Count 5.2 # 4.8-10.8 K/uL Red Blood Count 3.47 L 4.00-5.50 MIL/uL Hemoglobin 10.5 L 12.0-16.0 g/dL Hematocrit 31.7 #L 36-48 % Mean Corpuscular Volume 91.4 79-99 fL Mean Corpuscular Hemoglobin 30.3 27.0-33.0 pg Mean Corpuscular Hemoglobin Concent 33.1 32.0-36.0 g/dL Red Cell Distribution Width 13.6 11.0-15.5 % Platelet Count 191 130-400 K/uL Mean Platelet Volume 9.8 7.5-10.5 fL Immature Granulocyte % (Auto) 0.4 0-1 % Neutrophils (%) (Auto) 73.3 40.0-77.0 % Lymphocytes (%) (Auto) 14.5 L 21.0-51.0 % Monocytes (%) (Auto) 6.0 3.0-13.0 % Eosinophils (%) (Auto) 5.2 0.0-8.0 % Basophils (%) (Auto) 0.6 0.0-5.0 % Neutrophils # (Auto) 3.8 1.8-7.7 K/uL Lymphocytes # (Auto) 0.8 L 1.0-4.8 K/uL Monocytes # (Auto) 0.3 0.1-1.0 K/uL Eosinophils # (Auto) 0.27 0.00-0.70 K/uL Basophils # (Auto) 0.03 0.00-0.20 K/uL Absolute Immature Granulocyte (auto 0.02 0-1 K/uL Nucleated Red Blood Cells 0.0 0.0-0.19 % Chemistry Labs: Test 08/03/25 05:07 08/02/25 11:08 Range/Units Sodium Level 141 136-145 mmol/L Potassium Level 3.7 3.5-5.1 mmol/L Chloride Level 107 101-111 mmol/L Carbon Dioxide Level 26 21-32 mmol/L Blood Urea Nitrogen 8 7-18 mg/dL Creatinine 0.9 0.5-1.0 mg/dL Glomerular Filtration Rate Calc 64 >90 mL/min Random Glucose 95 70-105 mg/dL Total Calcium 8.2 L 8.5-10.1 mg/dL Free Thyroxine (T4) Direct 1.15 0.76-1.46 ng/dL Free Triiodothyronine (T3) pg/mL 1.79 L 2.18-3.98 pg/mL Hemoglobin A1c 5.5 4.0-6.0 % Estimated Average Glucose (eAG) 111 70-126 mg/dL Lactic Acid Level 1.8 0.8-2.5 mmol/L Total Bilirubin 0.6 0.2-1.0 mg/dL Direct Bilirubin 0.3 0.0-0.3 mg/dL Aspartate Amino Transf (AST/SGOT) 27 10-37 U/L Alanine Aminotransferase (ALT/SGPT) 5 L 12-78 U/L Alkaline Phosphatase 93 50-136 U/L Total Creatine Kinase 86 21-232 U/L Troponin I High Sensitivity 7 4-50 ng/L C-Reactive Protein, Quantitative 13.10 H 0.5-3.0 mg/L Total Protein 7.6 6.0-8.3 g/dL Albumin 3.7 3.5-5.0 g/dL Lipase 189 H 16-77 U/L Procalcitonin 0.57 H 0.05-0.5 ng/mL Thyroid Stimulating Hormone (TSH) 15.31 H 0.36-3.74 uIU/mL DIAGNOSTICS / RADIOLOGY RESULTS: na PLAN Maintain O2 sats above 92% supplement with a O2 if needed. Monitoring O2 sats with the vital signs 6 minute walk on discharge Pulmonary hygiene with IS, early ambulation CT chest performed with results of peripheral and basal predominant reticular interstitial thickening with honeycombing and traction bronchiectasis consistent with pulmonary fibrosis. Irregular pleural thickening and bilateral lower lobes. Continue current IV antibiotics ABG if hypoxemic or hypercapnic add steroids maintain euvolemia PT to eval and treat Continue home Singulair Continue GI and DVT prophylaxis Full Resuscitation Disposition per primary team. Other: Case discussed with supervising physician plan of care agreed upon BRADLY GUTHRIE Aug 03, 2025 13:24
--- NOTE | 2025-08-03 14:34 | PN ---
[facility] PROGRESS NOTE Date of Service: Aug 03, 2025 Time of Service: 14:31 SUBJECTIVE: [ The patient is a female with a history of hypertension, hyperlipidemia, hypothyroidism, and pulmonary fibrosis who presented with one week of abdominal pain, associated with nausea, vomiting, and loose, watery diarrhea. She denies hematochezia, hematemesis, melena, sick contacts, or recent travel. She reports a productive cough, fever, and chills at home. She denies dysuria, hematuria, or changes in urinary frequency. She did not take her morning medications due to nausea. She follows with Dr. Shepard for pulmonary fibrosis. No history of falls or syncopal episodes. Epigastric pain is present, non-radiating. ] REVIEW OF SYSTEMS CONSTITUTIONAL: Denies fevers, chills, or night sweats. No unintentional weight loss reported. NEUROLOGICAL: Denies headache, amaurosis fugax, motor weakness, sensory deficit, vertigo/spinning sensation, gait abnormalities, or tremors. ENT: No hearing loss, otalgia, otorrhea, rhinitis, rhinorrhea, hoarseness, or sore throat. CARDIOVASCULAR: Denies any exertional angina, dyspnea on exertion, orthopnea, paroxysmal nocturnal dyspnea, palpitations, life-threatening arrhythmias, claudication. PULMONARY: Denies any shortness of breath, hemoptysis, pleuritic chest pain. Positive For cough, sputum production GASTROINTESTINAL: Positive for abdominal pain, nausea, vomiting, diarrhea. Denied any melena, hematochezia, hematemesis GENITOURINARY: Denies frequency, urgency, nocturia, hematuria or incontinence (Storage/Irritative symptoms.) Low urinary stream, straining to void, urinary intermittency or hesitancy, splitting of the voiding stream, terminal dribbling. ENDOCRINOLOGIC: Denies polyuria, polydipsia, polyphagia or heat/cold intolerances. HEMATOLOGIC: Denies thrombophilia/previous clots, or coagulopathy/bleeding disorders. ONCOLOGIC: Denies personal history of malignancy. DERMATOLOGIC: Denies rashes or pruritus. PSYCHIATRIC: Denies any suicidal or homicidal ideation. Denies hallucinations. PHYSICAL EXAM GENERAL APPEARANCE: The patient is awake, alert, and oriented, in no acute cardiopulmonary distress. NEUROLOGICAL: Cranial nerves II-XII grossly intact. Motor is 5/5 in bilateral upper and lower extremities proximal to distal. No sensory deficits. HEENT: Face is symmetric. Pupils are equal and reactive. Extraocular movements are intact. NECK: Supple. No JVD. No thyromegaly. No submental, submandibular, pre- /postauricular, occipital or supraclavicular lymphadenopathy. CHEST: Normal chest expansion. No Telemetry. LUNGS: Patient has crackles present bilaterally CARDIOVASCULAR: Regular. S1 and S2 normal. No appreciable rubs, murmurs or gallops. ABDOMEN: Soft, tenderness to palpation in the epigastric area. No guarding, no rebound present : Deferred. No Hummel. EXTREMITIES: Non-edematous and not cyanotic. No clubbing. Good capillary refill. SKIN: No skin breakdown. Vital Signs (last 8hr) Date Time Temp Pulse Resp B/P (MAP) Pulse Ox O2 Delivery O2 Flow Rate FiO2 08/03/25 11:58 97.5 78 15 127/54 91 Room Air 08/03/25 08:00 99.1 90 16 117/57 92 Room Air 08/03/25 07:07 88 20 N/A Room Air 21 LABS: Laboratory: Test 08/03/25 05:07 08/02/25 16:29 08/02/25 11:17 08/02/25 11:08 Range/Units White Blood Count 5.2 # 4.8-10.8 K/uL Red Blood Count 3.47 L 4.00-5.50 MIL/uL Hemoglobin 10.5 L 12.0-16.0 g/dL Hematocrit 31.7 #L 36-48 % Mean Corpuscular Volume 91.4 79-99 fL Mean Corpuscular Hemoglobin 30.3 27.0-33.0 pg Mean Corpuscular Hemoglobin Concent 33.1 32.0-36.0 g/dL Red Cell Distribution Width 13.6 11.0-15.5 % Platelet Count 191 130-400 K/uL Mean Platelet Volume 9.8 7.5-10.5 fL Immature Granulocyte % (Auto) 0.4 0-1 % Neutrophils (%) (Auto) 73.3 40.0-77.0 % Lymphocytes (%) (Auto) 14.5 L 21.0-51.0 % Monocytes (%) (Auto) 6.0 3.0-13.0 % Eosinophils (%) (Auto) 5.2 0.0-8.0 % Basophils (%) (Auto) 0.6 0.0-5.0 % Neutrophils # (Auto) 3.8 1.8-7.7 K/uL Lymphocytes # (Auto) 0.8 L 1.0-4.8 K/uL Monocytes # (Auto) 0.3 0.1-1.0 K/uL Eosinophils # (Auto) 0.27 0.00-0.70 K/uL Basophils # (Auto) 0.03 0.00-0.20 K/uL Absolute Immature Granulocyte (auto 0.02 0-1 K/uL Nucleated Red Blood Cells 0.0 0.0-0.19 % Sodium Level 141 136-145 mmol/L Potassium Level 3.7 3.5-5.1 mmol/L Chloride Level 107 101-111 mmol/L Carbon Dioxide Level 26 21-32 mmol/L Blood Urea Nitrogen 8 7-18 mg/dL Creatinine 0.9 0.5-1.0 mg/dL Glomerular Filtration Rate Calc 64 >90 mL/min Random Glucose 95 70-105 mg/dL Total Calcium 8.2 L 8.5-10.1 mg/dL Free Thyroxine (T4) Direct 1.15 0.76-1.46 ng/dL Free Triiodothyronine (T3) pg/mL 1.79 L 2.18-3.98 pg/mL Blood Gas Specimen Type Arterial Arterial Blood pH 7.438 7.350-7.450 Arterial Blood Partial Pressure CO2 33 32-45 mmHg Arterial Blood Partial Pressure O2 71.7 L 83.0-108.0 mmHg Arterial Blood HCO3 21.5 21.0-28.0 mmol/L Arterial Blood Oxygen Saturation 93.7 L 94.0-98.0 % Arterial Blood Base Excess -1.9 -2.0-3.0 mmol/L Hemoglobin (Blood Gas) 12.2 12.0-16.0 g/dL Sodium (Blood Gas) 138 136-145 MMOL/L Bedside Potassium (Blood Gas) 4.0 3.4-4.5 MMOL/L Bedside Chloride (Blood Gas) 107 98-107 MMOL/L Bedside Glucose (Blood Gas) 102 H 65-95 MG/DL Bedside Ionized Calcium (Blood Gas) 1.17 1.15-1.33 MMOL/L Bedside Lactic Acid (Blood Gas) 0.77 H 0.36-0.75 MMOL/L Blood Gas Temperature 37.0 35.5-37.0 CELSIUS Blood Gas Vent Mode RA ROOM AIR FiO2 21.0 % Blood Gas Specimen Comment RR Urine Color YELLOW YELLOW Urine Appearance CLOUDY H CLEAR Urine pH 7.0 5.0-8.0 Urine Specific [place] 1.021 1.001-1.031 Urine Protein 20 H NEGATIVE mg/dL Urine Glucose (UA) NEGATIVE NEGATIVE mg/dL Urine Ketones NEGATIVE NEGATIVE mg/dL Urine Occult Blood +- (TRACE) H NEGATIVE Urine Nitrate 2+ H NEGATIVE Urine Bilirubin NEGATIVE NEGATIVE mg/dL Urine Urobilinogen 2.0 H 0.2-1.0 mg/dL Urine Leukocyte Esterase 500 H NEGATIVE Jason/uL Urine RBC 6-10 H 0-1 /HPF Urine WBC TNTC H 0-1 /HPF Urine Squamous Epithelial Cells RARE 0-2 /HPF Urine Bacteria MANY None Seen /HPF Hemoglobin A1c 5.5 4.0-6.0 % Estimated Average Glucose (eAG) 111 70-126 mg/dL Lactic Acid Level 1.8 0.8-2.5 mmol/L Total Bilirubin 0.6 0.2-1.0 mg/dL Direct Bilirubin 0.3 0.0-0.3 mg/dL Aspartate Amino Transf (AST/SGOT) 27 10-37 U/L Alanine Aminotransferase (ALT/SGPT) 5 L 12-78 U/L Alkaline Phosphatase 93 50-136 U/L Total Creatine Kinase 86 21-232 U/L Troponin I High Sensitivity 7 4-50 ng/L C-Reactive Protein, Quantitative 13.10 H 0.5-3.0 mg/L Total Protein 7.6 6.0-8.3 g/dL Albumin 3.7 3.5-5.0 g/dL Lipase 189 H 16-77 U/L Procalcitonin 0.57 H 0.05-0.5 ng/mL Thyroid Stimulating Hormone (TSH) 15.31 H 0.36-3.74 uIU/mL Test 08/02/25 10:45 Range/Units Influenza Type A Antigen Negative For Type A NEGATIVE Influenza Type B Antigen Negative For Type B NEGATIVE SARS-CoV-2, RNA, NAAT NEGATIVE SARS CoV-2 NEGATIVE Group A Streptococcus Rapid negative NEGATIVE Current Medications Medications (Trade) Dose Ordered Sig/Charles Route PRN Reason Start Time Stop Time Status Last Admin Dose Admin Acetaminophen (TYLenol 500MG TAB) 500 mg Q6H PRN PO MILD PAIN (1-3) 08/02/25 12:30 09/01/25 12:29 Atorvastatin Calcium (LIPItor 10MG) 10 mg HS PO 08/02/25 21:00 09/01/25 20:59 08/02/25 20:18 10 MG Citalopram Hydrobromide (CeleXA 20MG TAB) 10 mg DAILY PO 08/03/25 09:00 09/02/25 08:59 08/03/25 07:58 10 MG Doxycycline Hyclate (Doxycycline Hyclate) 100 mg BID PO 08/02/25 21:00 08/12/25 20:59 08/03/25 07:58 100 MG Enoxaparin Sodium (Lovenox) 40 mg DAILY SQ 08/03/25 09:00 09/02/25 08:59 08/03/25 07:58 40 MG Enoxaparin Sodium (Lovenox) 40 mg DAILY SQ 08/04/25 09:00 08/03/25 10:02 DC Famotidine (Pepcid 20mg Vial) 20 mg Q24H IV 08/02/25 21:00 09/01/25 20:59 08/02/25 20:18 20 MG Ipratropium Brule (AtrovENT UD) 0.5 MG Q4H PRN IH SHORTNESS OF BREATH 08/02/25 16:30 09/01/25 16:29 Levothyroxine Sodium (SYNTHroid 50MCG TAB) 50 mcg SYN PO 08/03/25 06:30 09/02/25 06:29 08/03/25 05:47 50 MCG Losartan Potassium (CozAAR 25MG TAB) 25 mg DAILY PO 08/03/25 09:00 09/02/25 08:59 08/03/25 07:58 25 MG Magnesium Sulfate 50 ml @ 0 mls/hr PROTOCOL PRN IV hypomagnesemia 08/02/25 12:30 09/01/25 12:29 Metoprolol Succinate (TopROL XL) 100 mg DAILY PO 08/03/25 09:00 09/02/25 08:59 08/03/25 07:58 100 MG Miscellaneous Medication (Escitalopram Oxalate ) 1 tab DAILY PO 08/03/25 09:00 08/03/25 07:21 DC Montelukast Sodium (SinguLAIR) 10 mg HS PO 08/02/25 21:00 09/01/25 20:59 08/02/25 20:18 10 MG Montelukast Sodium (SinguLAIR) 10 mg HS PO 08/02/25 21:00 09/01/25 20:59 Cancel Montelukast Sodium (SinguLAIR) 10 mg HS PO 08/02/25 21:00 09/01/25 20:59 Cancel Ondansetron HCl (zoFRAN 4MG INJ) 4 mg Q6H PRN IVP NAUSEA/VOMITING 08/02/25 12:30 09/01/25 12:29 08/02/25 22:20 4 MG Piperacillin Sod/ Tazobactam Sod (Zosyn 3.375gm+NS 50ml) 3.375 gm Q8H IVPB 08/02/25 14:00 08/12/25 13:59 08/03/25 05:25 3.375 GM Potassium Chloride 100 ml @ 100 mls/hr AD PRN IV POTASSIUM PROTOCOL 08/02/25 12:30 09/01/25 12:29 Potassium Chloride (K-Dur/Klor-Con 20meq) 20 meq AD PRN PO POTASSIUM PROTOCOL 08/02/25 12:30 09/01/25 12:29 Potassium Chloride (KCl 10% Elixir 20meq/15ml) 20 meq AD PRN PO POTASSIUM PROTOCOL 08/02/25 12:30 09/01/25 12:29 Sodium Chloride 1,000 ml @ 0 mls/hr Q0M STAT IV 08/02/25 11:48 08/02/25 11:59 DC Sodium Chloride 1,000 ml @ 100 mls/hr Q10H IV 08/02/25 12:30 09/01/25 12:29 08/02/25 21:29 100 MLS/HR Sodium Chloride (NS 50ml) 50 ml AD IV 08/02/25 14:00 08/02/25 12:23 DC Vitamin B Complex/ Vit C/Folic Acid (Nephrovite Tablet) 1 cap DAILY PO 08/03/25 09:00 09/02/25 08:59 08/03/25 07:58 1 CAP DIAGNOSTICS / RADIOLOGY: [ ] ASSESSMENT: UTI POA Epigastric abdominal pain differential secondary to pancreatitis versus cholelithiasis versus GERD Suspected gastroenteritis Dehydration Sinus tachycardia Pulmonary fibrosis Hypertension Hyperlipidemia Hypothyroidism PLAN: Continue IV fluids as needed. Monitor for signs of sepsis or clinical deterioration. Await urine culture results; initiate/adjust antibiotics as indicated. Pulmonology to follow; 6-minute walk test prior to discharge per folder operator. Monitor vitals, fluid status, and labs. Encourage resumption of home medications as tolerated. Symptomatic management of GI symptoms. Continue to monitor for respiratory status changes. Discussed with Dr. Elmore, above plan was formulated ATTESTATION BY PHYSICIAN I have seen and examined the patient. I reviewed the documentation, medical decision making, and treatment plan as noted by the mid-level provider above. I agree with the findings and plan of care. Henrik Elmore IV, MD, [facility] Aug 03, 2025 14:34
[2025-08-03] MEDS: PoTASSium chl 10% ELIXIR 20MEQ 20 MEQ/15 ML UDCUP PO PRN (17:45)
[2025-08-04] VITALS (9 sets, daily range): BP systolic 109–136; BP diastolic 46–67; PULSE 73–100; RESP 16–22; TEMP 97.5–98.2; O2SAT 85–96
[2025-08-04 04:52] LABS: NUCLEATED RED BLOOD CELLS 0.0 % (0.0-0.19); PLATELET COUNT (AUTO) 179.0 K/uL (130-400); RED BLOOD CELL COUNT(AUTO) 3.33 MIL/uL (4.00-5.50); RED CELL DISTRIBUTION WIDTH 13.3 % (11.0-15.5); WHITE BLOOD COUNT (AUTO) 4.5 K/uL (4.8-10.8)
[2025-08-04 05:07] LABS: CREATININE 0.8 mg/dL (0.5-1.0); GLOMERULAR FILTR. RATE CALC 74.0 mL/min (>90); GLUCOSE,RANDOM 83.0 mg/dL (70-105); SODIUM SERUM 141.0 mmol/L (136-145); UREA NITROGEN, BLOOD 7.0 mg/dL (7-18)
[2025-08-04] MEDS ORDERED: ENOXAPARIN SODIUM 40 MG/0.4 ML SYRINGE SQ SCH (09:00)
--- NOTE | 2025-08-04 10:49 | PN ---
[facility] PROGRESS NOTE Date Patient Seen: Aug 04, 2025 Time of Visit: 10:49 Supervising Physician: Dr. 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 Patient remains on room air is tolerating well. Patient denies any chest pain or shortness of breadth. Denies any nausea vomiting or any reoccurrence abdominal pain. Patient to continue with current IV antibiotics. As per primary nurse no acute events to be reported. Patient has remained hemodynamically stable. Dispo per primary team 08/04-patient assessed and seen while resting upon bed in a high Ford's position. Awake, alert, and oriented x3 as well as in no acute distress. Reviewed with patient's bedside nurse chart. Reviewed and discussed with patient diagnostic results, lab results, and recent vital signs. Patient hemodynamically stable. Afebrile. REVIEW OF SYSTEMS: General: No malaise or fever. Neurological: No fainting episodes or seizures. HEENT: No nasal congestion or nasal secretion. Respiratory: No cough, shortness of breath, or wheezing Cardiac: No chest pain or palpitations. Gastrointestinal: +Nausea vomiting and diarrhea Genitourinary: No dysuria hematuria. Skin: No rashes or lesions. Hematological: No bruises or bleeding. Musculoskeletal: No joint pains or arthralgias. Psychiatric: No depression or panic attacks. PHYSICAL EXAM: GENERAL: alert, weak, awake oriented x 3 HEENT: EOMI, Sclera non icteric, moist mucosa NECK: Supple, no JVD, trachea midline LUNGS: Fine crackles to left lower lobes, no wheezes. HEART: Regular rate and rhythm. Normal S1 and S2, without murmurs ABD: Abdomen soft, nontender. Bowel sounds present EXT: No clubbing cyanosis or edema NEURO: Alert and oriented to person, follows commands Vital Signs (last 8hr) Date Time Temp Pulse Resp B/P (MAP) Pulse Ox O2 Delivery O2 Flow Rate FiO2 08/04/25 08:00 97.9 73 16 127/60 94 Room Air 08/04/25 07:21 77 18 N/A Room Air 21 08/04/25 04:00 97.5 77 17 109/57 91 Room Air 21 LABS: Hematology Labs: Test 08/04/25 04:39 08/03/25 05:07 Range/Units White Blood Count 4.5 L 4.8-10.8 K/uL Red Blood Count 3.33 L 4.00-5.50 MIL/uL Hemoglobin 10.0 L 12.0-16.0 g/dL Hematocrit 30.6 L 36-48 % Mean Corpuscular Volume 91.9 79-99 fL Mean Corpuscular Hemoglobin 30.0 27.0-33.0 pg Mean Corpuscular Hemoglobin Concent 32.7 32.0-36.0 g/dL Red Cell Distribution Width 13.3 11.0-15.5 % Platelet Count 179 130-400 K/uL Mean Platelet Volume 9.5 7.5-10.5 fL Nucleated Red Blood Cells 0.0 0.0-0.19 % Immature Granulocyte % (Auto) 0.4 0-1 % Neutrophils (%) (Auto) 73.3 40.0-77.0 % Lymphocytes (%) (Auto) 14.5 L 21.0-51.0 % Monocytes (%) (Auto) 6.0 3.0-13.0 % Eosinophils (%) (Auto) 5.2 0.0-8.0 % Basophils (%) (Auto) 0.6 0.0-5.0 % Neutrophils # (Auto) 3.8 1.8-7.7 K/uL Lymphocytes # (Auto) 0.8 L 1.0-4.8 K/uL Monocytes # (Auto) 0.3 0.1-1.0 K/uL Eosinophils # (Auto) 0.27 0.00-0.70 K/uL Basophils # (Auto) 0.03 0.00-0.20 K/uL Absolute Immature Granulocyte (auto 0.02 0-1 K/uL Chemistry Labs: Test 08/04/25 04:39 08/03/25 05:07 08/02/25 11:08 Range/Units Sodium Level 141 136-145 mmol/L Potassium Level 3.9 3.5-5.1 mmol/L Chloride Level 109 101-111 mmol/L Carbon Dioxide Level 24 21-32 mmol/L Blood Urea Nitrogen 7 7-18 mg/dL Creatinine 0.8 0.5-1.0 mg/dL Glomerular Filtration Rate Calc 74 >90 mL/min Random Glucose 83 70-105 mg/dL Total Calcium 8.0 L 8.5-10.1 mg/dL Free Thyroxine (T4) Direct 1.15 0.76-1.46 ng/dL Free Triiodothyronine (T3) pg/mL 1.79 L 2.18-3.98 pg/mL Hemoglobin A1c 5.5 4.0-6.0 % Estimated Average Glucose (eAG) 111 70-126 mg/dL Lactic Acid Level 1.8 0.8-2.5 mmol/L Total Bilirubin 0.6 0.2-1.0 mg/dL Direct Bilirubin 0.3 0.0-0.3 mg/dL Aspartate Amino Transf (AST/SGOT) 27 10-37 U/L Alanine Aminotransferase (ALT/SGPT) 5 L 12-78 U/L Alkaline Phosphatase 93 50-136 U/L Total Creatine Kinase 86 21-232 U/L Troponin I High Sensitivity 7 4-50 ng/L C-Reactive Protein, Quantitative 13.10 H 0.5-3.0 mg/L Total Protein 7.6 6.0-8.3 g/dL Albumin 3.7 3.5-5.0 g/dL Lipase 189 H 16-77 U/L Procalcitonin 0.57 H 0.05-0.5 ng/mL Thyroid Stimulating Hormone (TSH) 15.31 H 0.36-3.74 uIU/mL DIAGNOSTICS / RADIOLOGY RESULTS: [ ] PLAN Maintain O2 sats above 92% supplement with a O2 if needed. Monitoring O2 sats with the vital signs 6 minute walk on discharge Pulmonary hygiene with IS, early ambulation CT chest performed with results of peripheral and basal predominant reticular interstitial thickening with honeycombing and traction bronchiectasis consistent with pulmonary fibrosis. Irregular pleural thickening and bilateral lower lobes. Continue current IV antibiotics PT to eval and treat Continue GI and DVT prophylaxis Disposition per primary team. Other: Case discussed with supervising physician plan of care agreed upon SENTHIL BRYANT AGACN Aug 04, 2025 10:49
--- NOTE | 2025-08-04 16:50 | PN ---
[facility] PROGRESS NOTE Date of Service: Aug 04, 2025 Time of Service: 16:[address] Roldan SUBJECTIVE: [ 08/03 The patient is a female with a history of hypertension, hyperlipidemia, hypothyroidism, and pulmonary fibrosis who presented with one week of abdominal pain, associated with nausea, vomiting, and loose, watery diarrhea. She denies hematochezia, hematemesis, melena, sick contacts, or recent travel. She reports a productive cough, fever, and chills at home. She denies dysuria, hematuria, or changes in urinary frequency. She did not take her morning medications due to nausea. She follows with Dr. Shepard for pulmonary fibrosis. No history of falls or syncopal episodes. Epigastric pain is present, non-radiating. 08/04 patient was seen by nurse practitioner and physician during rounding in room 314. Urine culture positive for E coli. Blood culture pending final results. Chest CT showed pulmonary fibrosis. As per pulmonology they recommend 6 minute walk prior discharge. Pending. We will continue to monitor patient in the meantime. A.m. labs.] REVIEW OF SYSTEMS CONSTITUTIONAL: Denies fevers, chills, or night sweats. No unintentional weight loss reported. NEUROLOGICAL: Denies headache, amaurosis fugax, motor weakness, sensory deficit, vertigo/spinning sensation, gait abnormalities, or tremors. ENT: No hearing loss, otalgia, otorrhea, rhinitis, rhinorrhea, hoarseness, or sore throat. CARDIOVASCULAR: Denies any exertional angina, dyspnea on exertion, orthopnea, paroxysmal nocturnal dyspnea, palpitations, life-threatening arrhythmias, claudication. PULMONARY: Denies any shortness of breath, hemoptysis, pleuritic chest pain. Positive For cough, sputum production GASTROINTESTINAL: Positive for abdominal pain, nausea, vomiting, diarrhea. Denied any melena, hematochezia, hematemesis GENITOURINARY: Denies frequency, urgency, nocturia, hematuria or incontinence (Storage/Irritative symptoms.) Low urinary stream, straining to void, urinary intermittency or hesitancy, splitting of the voiding stream, terminal dribbling. ENDOCRINOLOGIC: Denies polyuria, polydipsia, polyphagia or heat/cold intolerances. HEMATOLOGIC: Denies thrombophilia/previous clots, or coagulopathy/bleeding disorders. ONCOLOGIC: Denies personal history of malignancy. DERMATOLOGIC: Denies rashes or pruritus. PSYCHIATRIC: Denies any suicidal or homicidal ideation. Denies hallucinations. PHYSICAL EXAM GENERAL APPEARANCE: The patient is awake, alert, and oriented, in no acute cardiopulmonary distress. NEUROLOGICAL: Cranial nerves II-XII grossly intact. Motor is 5/5 in bilateral upper and lower extremities proximal to distal. No sensory deficits. HEENT: Face is symmetric. Pupils are equal and reactive. Extraocular movements are intact. NECK: Supple. No JVD. No thyromegaly. No submental, submandibular, pre- /postauricular, occipital or supraclavicular lymphadenopathy. CHEST: Normal chest expansion. No Telemetry. LUNGS: Patient has crackles present bilaterally CARDIOVASCULAR: Regular. S1 and S2 normal. No appreciable rubs, murmurs or gallops. ABDOMEN: Soft, tenderness to palpation in the epigastric area. No guarding, no rebound present : Deferred. No Hummel. EXTREMITIES: Non-edematous and not cyanotic. No clubbing. Good capillary refill. SKIN: No skin breakdown. Vital Signs (last 8hr) Date Time Temp Pulse Resp B/P (MAP) Pulse Ox O2 Delivery O2 Flow Rate FiO2 08/04/25 16:18 88 18 21 100 22 21 92 20 28 08/04/25 16:00 97.5 82 16 136/54 96 Room Air 08/04/25 12:00 97.9 75 16 135/67 94 Room Air LABS: Laboratory: Test 08/04/25 04:39 08/03/25 05:07 Range/Units White Blood Count 4.5 L 4.8-10.8 K/uL Red Blood Count 3.33 L 4.00-5.50 MIL/uL Hemoglobin 10.0 L 12.0-16.0 g/dL Hematocrit 30.6 L 36-48 % Mean Corpuscular Volume 91.9 79-99 fL Mean Corpuscular Hemoglobin 30.0 27.0-33.0 pg Mean Corpuscular Hemoglobin Concent 32.7 32.0-36.0 g/dL Red Cell Distribution Width 13.3 11.0-15.5 % Platelet Count 179 130-400 K/uL Mean Platelet Volume 9.5 7.5-10.5 fL Nucleated Red Blood Cells 0.0 0.0-0.19 % Sodium Level 141 136-145 mmol/L Potassium Level 3.9 3.5-5.1 mmol/L Chloride Level 109 101-111 mmol/L Carbon Dioxide Level 24 21-32 mmol/L Blood Urea Nitrogen 7 7-18 mg/dL Creatinine 0.8 0.5-1.0 mg/dL Glomerular Filtration Rate Calc 74 >90 mL/min Random Glucose 83 70-105 mg/dL Total Calcium 8.0 L 8.5-10.1 mg/dL Immature Granulocyte % (Auto) 0.4 0-1 % Neutrophils (%) (Auto) 73.3 40.0-77.0 % Lymphocytes (%) (Auto) 14.5 L 21.0-51.0 % Monocytes (%) (Auto) 6.0 3.0-13.0 % Eosinophils (%) (Auto) 5.2 0.0-8.0 % Basophils (%) (Auto) 0.6 0.0-5.0 % Neutrophils # (Auto) 3.8 1.8-7.7 K/uL Lymphocytes # (Auto) 0.8 L 1.0-4.8 K/uL Monocytes # (Auto) 0.3 0.1-1.0 K/uL Eosinophils # (Auto) 0.27 0.00-0.70 K/uL Basophils # (Auto) 0.03 0.00-0.20 K/uL Absolute Immature Granulocyte (auto 0.02 0-1 K/uL Free Thyroxine (T4) Direct 1.15 0.76-1.46 ng/dL Free Triiodothyronine (T3) pg/mL 1.79 L 2.18-3.98 pg/mL Current Medications Medications (Trade) Dose Ordered Sig/Charles Route PRN Reason Start Time Stop Time Status Last Admin Dose Admin Acetaminophen (TYLenol 500MG TAB) 500 mg Q6H PRN PO MILD PAIN (1-3) 08/02/25 12:30 09/01/25 12:29 08/03/25 23:51 500 MG Atorvastatin Calcium (LIPItor 10MG) 10 mg HS PO 08/02/25 21:00 09/01/25 20:59 08/03/25 20:23 10 MG Citalopram Hydrobromide (CeleXA 20MG TAB) 10 mg DAILY PO 08/03/25 09:00 09/02/25 08:59 08/04/25 08:21 10 MG Doxycycline Hyclate (Doxycycline Hyclate) 100 mg BID PO 08/02/25 21:00 08/12/25 20:59 08/04/25 08:20 100 MG Enoxaparin Sodium (Lovenox) 40 mg DAILY SQ 08/03/25 09:00 09/02/25 08:59 08/04/25 08:20 40 MG Enoxaparin Sodium (Lovenox) 40 mg DAILY SQ 08/04/25 09:00 08/03/25 10:02 DC Famotidine (Pepcid 20mg Vial) 20 mg Q24H IV 08/02/25 21:00 09/01/25 20:59 08/03/25 20:23 20 MG Ipratropium Bylas (AtrovENT UD) 0.5 MG Q4H PRN IH SHORTNESS OF BREATH 08/02/25 16:30 09/01/25 16:29 Levothyroxine Sodium (SYNTHroid 50MCG TAB) 50 mcg SYN PO 08/03/25 06:30 09/02/25 06:29 08/04/25 06:22 50 MCG Losartan Potassium (CozAAR 25MG TAB) 25 mg DAILY PO 08/03/25 09:00 09/02/25 08:59 08/04/25 08:21 25 MG Magnesium Sulfate 50 ml @ 0 mls/hr PROTOCOL PRN IV hypomagnesemia 08/02/25 12:30 09/01/25 12:29 Metoprolol Succinate (TopROL XL) 100 mg DAILY PO 08/03/25 09:00 09/02/25 08:59 08/04/25 08:21 100 MG Miscellaneous Medication (Escitalopram Oxalate ) 1 tab DAILY PO 08/03/25 09:00 08/03/25 07:21 DC Montelukast Sodium (SinguLAIR) 10 mg HS PO 08/02/25 21:00 09/01/25 20:59 08/03/25 20:22 10 MG Montelukast Sodium (SinguLAIR) 10 mg HS PO 08/02/25 21:00 09/01/25 20:59 Cancel Montelukast Sodium (SinguLAIR) 10 mg HS PO 08/02/25 21:00 09/01/25 20:59 Cancel Ondansetron HCl (zoFRAN 4MG INJ) 4 mg Q6H PRN IVP NAUSEA/VOMITING 08/02/25 12:30 09/01/25 12:29 08/03/25 21:33 4 MG Piperacillin Sod/ Tazobactam Sod (Zosyn 3.375gm+NS 50ml) 3.375 gm Q8H IVPB 08/02/25 14:00 08/12/25 13:59 08/04/25 15:07 3.375 GM Potassium Chloride 100 ml @ 100 mls/hr AD PRN IV POTASSIUM PROTOCOL 08/02/25 12:30 09/01/25 12:29 Potassium Chloride (K-Dur/Klor-Con 20meq) 20 meq AD PRN PO POTASSIUM PROTOCOL 08/02/25 12:30 09/01/25 12:29 Potassium Chloride (KCl 10% Elixir 20meq/15ml) 20 meq AD PRN PO POTASSIUM PROTOCOL 08/02/25 12:30 09/01/25 12:29 08/03/25 19:45 20 MEQ Sodium Chloride 1,000 ml @ 0 mls/hr Q0M STAT IV 08/02/25 11:48 08/02/25 11:59 DC Sodium Chloride 1,000 ml @ 100 mls/hr Q10H IV 08/02/25 12:30 09/01/25 12:29 08/04/25 04:16 100 MLS/HR Sodium Chloride (NS 50ml) 50 ml AD IV 08/02/25 14:00 08/02/25 12:23 DC Vitamin B Complex/ Vit C/Folic Acid (Nephrovite Tablet) 1 cap DAILY PO 08/03/25 09:00 09/02/25 08:59 08/04/25 08:21 1 CAP DIAGNOSTICS / RADIOLOGY: [ ] ASSESSMENT: Acute complicated cystitis POA Epigastric abdominal pain differential secondary to pancreatitis versus cholelithiasis versus GERD Suspected gastroenteritis Acute Dehydration Sinus tachycardia Pulmonary fibrosis Hypertension Hyperlipidemia Hypothyroidism PLAN: Urine culture positive for E coli. Blood culture pending final results. Chest CT showed pulmonary fibrosis. As per pulmonology they recommend 6 minute walk prior discharge. Pending. We will continue to monitor patient in the meantime. A.m. labs. Continue IV fluids as needed. Monitor for signs of sepsis or clinical deterioration. Urine culture positive E coli Monitor vitals, fluid status, and labs. Encourage resumption of home medications as tolerated. Symptomatic management of GI symptoms. Continue to monitor for respiratory status changes. ATTESTATION BY PHYSICIAN I have seen and examined the patient. I reviewed the documentation, medical decision making, and treatment plan as noted by the mid-level provider above. I agree with the findings and plan of care. Colleen Roldan MD, KATARZYNA B VOICER Aug 04, 2025 16:50
--- NOTE | 2025-08-04 17:38 | HMCIMG ---
EXAM: XR Chest, 1 View. Portable anteroposterior radiograph of the chest was obtained. As a single portable view, the examination is limited for subtle parenchymal abnormalities, small pleural effusions, and small pneumothoraces. CLINICAL HISTORY: Chest radiograph for comparison. COMPARISON: CR ??? Chest, single view dated 08/02/2023. FINDINGS: LUNGS: The lungs show no focal airspace consolidation or discrete pulmonary nodules. There is interval prominence of the bronchovascular markings. This can be seen with pulmonary vascular congestion or low inspiratory effort; correlates clinically. PLEURAL SPACES: No pleural effusion or pneumothorax. HEART: The cardiomediastinal silhouette is mildly enlarged today. Mediastinal contours are otherwise unremarkable. Interval mild cardiomegaly compared with 08/02/2023. BONES: No acute osseous abnormality. IMPRESSION: 1. No acute cardiopulmonary process identified; specifically, no focal airspace consolidation, pleural effusion, or pneumothorax. 2. Interval mild cardiomegaly compared with 08/02. 3. Interval prominence of bronchovascular markings, which can be seen with pulmonary vascular congestion or low inspiratory effort. /Bledsoe
[2025-08-05] VITALS (8 sets, daily range): BP systolic 119–149; BP diastolic 59–79; PULSE 80–108; RESP 18–20; TEMP 98.4–99.3; O2SAT 94–99
[2025-08-05 05:25] LABS: IMMATURE GRANULOCYTE ABSOLUTE 0.03 K/uL (0-1); NUCLEATED RED BLOOD CELLS 0.0 % (0.0-0.19); RED BLOOD CELL COUNT(AUTO) 3.41 MIL/uL (4.00-5.50); RED CELL DISTRIBUTION WIDTH 13.3 % (11.0-15.5); WHITE BLOOD COUNT (AUTO) 4.5 K/uL (4.8-10.8)
[2025-08-05 05:28] LABS: PLATELET COUNT (AUTO) 136 K/uL (130-400)
[2025-08-05 05:40] LABS: ASPARTATE AMINOTRANSFERASE 25.0 U/L (10-37); CREATININE 0.8 mg/dL (0.5-1.0); GLOMERULAR FILTR. RATE CALC 74.0 mL/min (>90); GLUCOSE,RANDOM 84.0 mg/dL (70-105); SODIUM SERUM 142.0 mmol/L (136-145); TOTAL PROTEIN, SERUM 5.6 g/dL (6.0-8.3); UREA NITROGEN, BLOOD 7.0 mg/dL (7-18)
[2025-08-05] MEDS: PoTASSium chloRIDE 20MEQ ER 20 MEQ ERTAB PO PRN (05:55)
[2025-08-05] MEDS: MAGNESIUM 2GM PREMIX 50ML 50 ML IV PRN (09:25)
[2025-08-05] MEDS: PoTASSium chloRIDE 20MEQ ER 20 MEQ ERTAB PO ONE (10:00)
[2025-08-05] MEDS ORDERED: DOXY100T2 PO (15:06)
--- NOTE | 2025-08-05 15:13 | DS ---
Discharge Summary Hospital Course Summary: DATE OF ADMISSION:[08/02/2025] DATE OF DISCHARGE:[08/04/2025] DISPOSITION:[Home] CONDITION:[Medically stable] CONSULTANTS:[Donor Technician] FOLLOW UP APPOINTMENTS:[PCP 2 to 3 days. Donor Technician within 1 to 2 weeks] PROCEDURES:[None] IMAGING: report attached to summary MICROBIOLOGY: report attached to summary ACTIVITY:[Independent] HOME MEDICATIONS: see [facility] NEW MEDICATIONS:[Doxycycline 100 mg p.o. b.i.d.] EMERGENCY INSTRUCTIONS: The patient was instructed to present to the nearest Emergency departmentr or call 911 once their symptoms will return or worsen Operations Section Manager(s): Patient is 80 years old female with a past medical history of hypertension, hyperlipidemia, hypothyroidism and pulmonary fibrosis who came to emergency department with a complaint of abdominal pain associated with the nausea vomiting and loose watery stools. She was also reporting some productive cough, fever and chills at home. Throughout the hospitalization patient underwent CT abdomen/pelvis which showed subpleural reticular opacities in both lungs and interstitial lung disease. CT chest showed pulmonary fibrosis. Donor Technician was consulted for further recommendation patient is cleared to be discharged home follow up outpatient. Patient's UA on admission was positive for leukocytosis and nitrates. Final urine culture came back positive for E coli. Blood culture negative x3 days. Patient denies any shortness of breath, chest pain, nausea, vomiting or any abdominal pain or diarrhea at this moment. Patient also underwent 6 minute walk and failed. All the O2 equipment will be delivered to patient's home. Once patient will receive oxygen patient will be discharged home. Patient is cleared to be discharged home follow up outpatient with the PCP in 2 to 3 days and assistant food service director within 1 to 2 weeks. Procedure(s): REVIEW OF SYSTEMS: General: No malaise or fever. Neurological: No fainting episodes or seizures. HEENT: No nasal congestion or nasal secretion. Respiratory: No cough, shortness of breath, or wheezing Cardiac: No chest pain or palpitations. Gastrointestinal: +Nausea vomiting and diarrhea Genitourinary: No dysuria hematuria. Skin: No rashes or lesions. Hematological: No bruises or bleeding. Musculoskeletal: No joint pains or arthralgias. Psychiatric: No depression or panic attacks. PHYSICAL EXAM: GENERAL: alert, weak, awake oriented x 3 HEENT: EOMI, Sclera non icteric, moist mucosa NECK: Supple, no JVD, trachea midline LUNGS: Fine crackles to left lower lobes, no wheezes. HEART: Regular rate and rhythm. Normal S1 and S2, without murmurs ABD: Abdomen soft, nontender. Bowel sounds present EXT: No clubbing cyanosis or edema NEURO: Alert and oriented to person, follows commands Assessment/Plan: ASSESSMENT: Acute hypoxic respiratory failure POA Acute complicated cystitis POA Epigastric abdominal pain differential secondary to pancreatitis versus cholelithiasis versus GERD Suspected gastroenteritis Acute Dehydration Urine culture growing E coli POA Sinus tachycardia Multifactorial anemia POA Mild protein malnutrition POA Pulmonary fibrosis per CT chest Uncontrolled Hypertension Hyperlipidemia Hypothyroidism Home Medications: Reported Medications Atorvastatin Calcium (LIPITOR) 10 Mg Tab, 1 TAB PO HS for 30 Days, #30 TAB 0 Refills 08/02/25 Montelukast Sodium (Montelukast Sodium) 10 Mg Tablet, 1 TAB PO HS for 30 Days, #30 TAB 0 Refills 08/02/25 Mirtazapine (Mirtazapine) 15 Mg Tab.rapdis, 1 TAB PO HS for 30 Days, #30 TAB 0 Refills 08/02/25 Folic Acid/Vitamin B Comp W-C (Anette-Eriberto Tablet) 0.8 Mg Tablet, 1 TAB PO DAILY for 30 Days, #30 TAB 0 Refills 08/02/25 Escitalopram Oxalate (Escitalopram Oxalate) 10 Mg Tablet, 1 TAB PO DAILY for 30 Days, #30 TAB 0 Refills 08/02/25 Levothyroxine Sodium (Levothyroxine) 50 Mcg Capsule, 1 CAP PO DAILY for 30 Days, #30 CAP 0 Refills 08/02/25 Famotidine (Famotidine) 40 Mg Tablet, 1 TAB PO DAILY for 30 Days, #30 TAB 0 Refills 08/02/25 Losartan Potassium (Losartan Potassium) 25 Mg Tablet, 1 TAB PO DAILY for 30 Days, #30 TAB 0 Refills 08/02/25 Metoprolol Succinate (Metoprolol Succinate) 100 Mg Tab.er.24h, 1 TAB PO DAILY for 30 Days, #30 TAB 0 Refills 08/02/25 Time spent arranging discharge: 31-60 minutes ATTESTATION BY PHYSICIAN I have seen and examined the patient. I reviewed the documentation, medical decision making, and treatment plan as noted by the mid-level provider above. I agree with the findings and plan of care. Colleen Roldan MD, KATARZYNA B [facility] Aug 05, 2025 15:13
[2025-08-05 16:13] LABS: C DIFFICILE TOXIN A/B Not Detected (Not Detected); ENTEROAGGREGATIVE ECOLI Not Detected (Not Detected); GIARDIA LAMBLIA Not Detected (Not Detected); PLESIOMONAS SHIGELOIDES Not Detected (Not Detected); SAPOVIRUS Not Detected (Not Detected); SHIGELLA/ENTEROINVASIVE E COLI Not Detected (Not Detected); VIBRIO Not Detected (Not Detected); VIBRIO CHOLERAE Not Detected (Not Detected)
== END 2025-08-05 19:40 | disposition home or self-care (01) | DRG 871 ==
LOC: EDH 10:38 → EDHIP 12:16 → 3CH 15:15
PROVIDERS: ADMIT Internal Medicine; ATTEND Internal Medicine
DX: A41.9 Sepsis, unspecified organism (principal); J96.01 Acute respiratory failure with hypoxia; K85.90 Acute pancreatitis without necrosis or infection, unspecified; N30.00 Acute cystitis without hematuria; E44.1 Mild protein-calorie malnutrition; Z20.822 Contact with and (suspected) exposure to COVID-19; I10 Essential (primary) hypertension; K80.20 Calculus of gallbladder without cholecystitis without obstruction; K52.9 Noninfective gastroenteritis and colitis, unspecified; E86.0 Dehydration; J84.10 Pulmonary fibrosis, unspecified; E78.5 Hyperlipidemia, unspecified; E03.9 Hypothyroidism, unspecified; K21.9 Gastro-esophageal reflux disease without esophagitis; B96.20 Unspecified Escherichia coli [E. coli] as the cause of diseases classified elsewhere; D64.9 Anemia, unspecified; J47.9 Bronchiectasis, uncomplicated; Z90.710 Acquired absence of both cervix and uterus; Z79.899 Other long term (current) drug therapy; Z68.33 Body mass index [BMI] 33.0-33.9, adult
CPT/HCPCS: 36415; 36600; 71045; 71250; 74176; 80048; 80053; 80076; 81001; 82435; 82550; 82803; 82947; 83036; 83605; 83690; 83735; 84132; 84145; 84295; 84439; 84443; 84481; 84484; 85018; 85025; 85027; 86140; 87040; 87086; 87177; 87186; 87507; 87635; 87804; 87880; 93005; 94640; 94760; 99291; G0378; J0696; J1650; J2405; J2543; J3475; J7030; J1308